=== PATIENT | male | born 2000 | race Caucasian/White ===

== ENCOUNTER 2021-07-24 11:39 | Emergency (ER) | payer BC, SELFPAY ==
--- NOTE | 2021-07-24 11:48 | ED.URI ---
HPI - URI/Sore Throat General Chief Complaint: Upper Respiratory Infection Stated Complaint: sore throat Time Seen by Provider: 07/24/21 11:48 Source: patient and RN notes reviewed Mode of arrival: ambulatory Limitations: no limitations History of Present Illness HPI Narrative: 21-year-old male presents to the [facility] with complaints of sore throat since last night and headache. No treatment prior to arrival. Also complains of a sore that inside the right upper cheek. Denies any past medical or surgical history. MD elicited complaint: sore throat, rhinorrhea and nasal congestion Related Data Allergies Allergy/AdvReac Type Severity Reaction Status Date / Time No Known Allergies Allergy Unverified 07/14/21 16:07 Review of Systems Review of Systems: All systems reviewed & are unremarkable except as noted in HPI and below Constitutional: Constitutional: Reports no additional constitutional complaints, Denies chills and Denies fever(s) Eyes: Eyes: Reports no additional eye complaints ENT: Reports as per HPI and Reports sore throat Comments: Sore right cheek Cardiovascular: Cardiovascular: Reports no additional cardiovascular complaints, Denies chest pain and Denies radiating jaw, neck or arm pain Respiratory: Respiratory: Reports no additional respiratory complaints, Denies cough and Denies dyspnea Gastrointestinal: Gastrointestinal: Reports no additional gastrointestinal complaints, Denies abdominal pain, Denies nausea and Denies vomiting Musculoskeletal: Musculoskeletal: Reports no additional musculoskeletal complaints Integumentary/Breasts: Skin/Breast: Reports system reviewed and no additional complaints, except as docu Neurologic: Reports as per HPI and Reports headache(s) Psychiatric: Psychiatric: Reports no additional psychiatric complaints Allergic/Immunologic: Allergic/Immunologic: Reports no additional allergic/immunologic complaints [facility] Past Medical History Medical History Anxiety Family History Family History Father Depression Anxiety Mother Depression Anxiety Heart disease History of PCOS Sibling Depression Anxiety Grandparent Depression Anxiety Heart disease Cerebrovascular accident Social History Social History (Updated 07/24/21 @ 19:41 by Nichelle Clinton) Smoking status: Never smoker Alcohol intake: never Substance use: never Living arrangements: with family Gender identity (if verbalized by the patient): Male Comments At the time of my signature, I reviewed and agree with the nursing past medical, surgical, social, and family history. There is no relevant family history pertinent to the patient complaint. Exam Const: General: healthy appearing, no acute distress and alert Nutritional Appearance: well nourished Orientation/consciousness: patient oriented x3 Limitations: no limitations HENMT: Head: normal to inspection Ears: external ears normal, TM's normal bilaterally and EAC's normal General nose exam: Normal external nose present Face and sinus: normal facial exam Mouth: Yes Normal oral and palatal mucosa present Throat: posterior oropharynx normal, uvula midline and no uvular edema Other: Aphthous ulcer noted less than half a centimeter right upper cheek. Eyes: Conjunctivae: conjunctivae normal Pupils: Equal, round and reactive pupils present Neck: Neck: normal visual inspection, no lymphadenopathy and no meningeal signs Chest: Chest palpation & inspection: normal inspection of the chest Resp: Effort & Inspection: normal respiratory effort Cardio: Rate: regular rate Rhythm: regular rhythm GI: GI Palp: Yes Soft to palpation and No Tenderness to palpation present (GI) Back/Spine/Pelvis: Back: no CVA tenderness Skin: General skin exam: normal color Rashes: no rashes Wounds: no wounds Neuro: General: patient oriented x3, moves all extrem
[2021-07-24 11:49] VITALS: BP 136/89; PULSE 81; RESP 16; TEMP 37.2; O2SAT 99
== END 2021-07-24 12:15 | disposition home or self-care (01) ==
PROVIDERS: Emergency Provider Nurse Practitioner
DX: J02.8 Acute pharyngitis due to other specified organisms (principal); K12.0 Recurrent oral aphthae
CPT/HCPCS: 87081; 87880; 99213; G0463

== ENCOUNTER 2021-07-25 19:56 | Emergency (ER) | payer BC, SELFPAY ==
[2021-07-25 20:01] VITALS: BP 142/79; PULSE 98; RESP 16; TEMP 36.3; O2SAT 99
[2021-07-25] MEDS: SODIUM CHLORIDE 0.9% IV 1,000 ML 999 ML IV CONT (20:50)
[2021-07-25] MEDS: KETOROLAC 30 MG/ML VIAL (*BKC) IV PUSH (20:50)
--- NOTE | 2021-07-25 22:15 | ED.GENADULT ---
HPI - General Adult General Chief complaint: Upper Respiratory Infection Stated complaint: covid symptoms Time Seen by Provider: 07/25/21 20:07 History of Present Illness HPI narrative: Patient is a 21-year-old male who presents ER with viral symptoms. Reports over the last week has had sinus congestion with sinus headache. He is recently developed postnasal drip with productive cough. Reports fatigue. No fevers or chills. No sweats. Reports decreased appetite. Reports he is also had some dizziness when going from sitting to standing. He was swabbed for strep yesterday and it was negative. No loss of taste or smell. Unvaccinated against Covid. No improvement with NyQuil. Related Data Allergies Allergy/AdvReac Type Severity Reaction Status Date / Time No Known Allergies Allergy Unverified 07/25/21 20:03 Review of Systems Review of Systems: All systems reviewed & are unremarkable except as noted in HPI and below Constitutional: Constitutional: Denies chills, Reports fatigue and Denies fever(s) ENT: Reports nasal congestion and Reports sore throat Cardiovascular: Cardiovascular: Denies chest pain, Denies rapid heart rate and Denies radiating jaw, neck or arm pain Respiratory: Respiratory: Reports cough, Denies dyspnea and Denies wheezing PMFSH Past Medical History Medical History Anxiety Family History Family History Father Depression Anxiety Mother Depression Anxiety Heart disease History of PCOS Sibling Depression Anxiety Grandparent Depression Anxiety Heart disease Cerebrovascular accident Social History Social History (Updated 07/24/21 @ 19:41 by Nichelle Clinton) Smoking status: Never smoker Alcohol intake: never Substance use: never Gender identity (if verbalized by the patient): Male Exam Narrative: GENERAL: Well-appearing, well-nourished, and in no acute distress. HEAD: Normocephalic, atraumatic. ENT: Mucous membranes moist. Aphthous ulcer buccal mucosa right side near tooth #2. Tonsils normal appearance. Postnasal drip noted. NECK: Supple. CHEST: Clear to auscultation. No respiratory distress. HEART: Regular rate and rhythm. Normal peripheral pulses. EXTREMITIES: Normal range of motion. No edema. NEURO: Alert and oriented x3. PSYCH: Normal mood and affect. Course Course Emergency Course: Patient hydrated. Discussed conservative management of viral syndrome. Not felt to be Covid. Discharge home. Vital Signs Vital signs: Vital Signs Temperature 97.3 F L 07/25/21 20:01 Pulse Rate 98 07/25/21 20:01 Respiratory Rate 16 07/25/21 20:01 Blood Pressure 142/79 H 07/25/21 20:01 Pulse Oximetry 99 07/25/21 20:01 Temperature 97.3 F L 07/25/21 20:01 Pulse Rate 98 07/25/21 20:01 Respiratory Rate 16 07/25/21 20:01 Blood Pressure 142/79 H 07/25/21 20:01 Pulse Oximetry 99 07/25/21 20:01 Medical Decision Making Vital Signs Vital Signs: Vital Signs Temperature 97.3 F L 07/25/21 20:01 Pulse Rate 98 07/25/21 20:01 Respiratory Rate 16 07/25/21 20:01 Blood Pressure 142/79 H 07/25/21 20:01 Pulse Oximetry 99 07/25/21 20:01 Temperature 97.3 F L 07/25/21 20:01 Pulse Rate 98 07/25/21 20:01 Respiratory Rate 16 07/25/21 20:01 Blood Pressure 142/79 H 07/25/21 20:01 Pulse Oximetry 99 07/25/21 20:01 Discharge Plan Discharge Clinical Impression: Upper respiratory infection Patient Disposition: Home, Self-Care Condition: Stable Instructions: Upper Respiratory Infection (ED) Additional Instructions: Return the ER if cannot breathe, you cannot swallow, you have chest pain or shortness of breath, you have additional concerns. Make sure to stay hydrated at home. Prescriptions: New Mucus Relief Sinus 10-400 mg tablet 1 tablet PO Q4H PRN (Reason: congestion) Qty: 20 RF: 0 fluticasone propio
[2021-07-25 22:30] VITALS: BP 119/82; PULSE 75; RESP 18; O2SAT 100
== END 2021-07-25 22:34 | disposition home or self-care (01) ==
PROVIDERS: Emergency Provider Emergency Medicine; PCP Family Medicine
DX: J06.9 Acute upper respiratory infection, unspecified (principal)
CPT/HCPCS: 96361; 96374; 99284; J1885; J7030